=== PATIENT | female | born 1985 ===

== ENCOUNTER 2019-05-23 11:20 | Outpatient (CLI) | payer OTHER | END 2019-05-23 11:22 | disposition home or self-care (01) | LOC: SONOGRAMA 11:20 | DX: E04.8 Other specified nontoxic goiter (principal) ==

== ENCOUNTER 2019-11-12 11:30 | Inpatient (IN) | payer OTHER ==
[~2019-11-12] VITALS: Ht 160 cm; Wt 76.2 kg
[2019-12-03] MEDS ORDERED: PRENATAL TABLE1 EAC1 PO (09:08)
[2019-12-03] MEDS ORDERED: MAXFE CAPLET1 EACH PO (09:11)
[2019-12-03] MEDS ORDERED: SYMBICORT 16010.2 GM (15:58)
[2019-12-03] MEDS ORDERED: PANTOPRAZOLE SO40 MG PO (15:58)
== END 2019-12-05 12:24 | disposition home or self-care (01) | DRG 807 ==
LOC: LDR 12-03 06:55 → OB/GYN 12-03 12:50 → LDR 12-09 11:30
PROVIDERS: ADMIT Obstetrics & Gynecology Maternal & Fetal Medicine; ATTEND Obstetrics & Gynecology Maternal & Fetal Medicine
PROC: 10E0XZZ Delivery of Products of Conception, External Approach (ICD-10-PCS; principal; 2019-12-03)
PROC: 0KQM0ZZ Repair Perineum Muscle, Open Approach (ICD-10-PCS; 2019-12-03)
PROC: 4A1HXFZ Monitoring of Products of Conception, Cardiac Rhythm, External Approach (ICD-10-PCS; 2019-12-03)
PROC: 3E033VJ Introduction of Other Hormone into Peripheral Vein, Percutaneous Approach (ICD-10-PCS; 2019-12-03)
PROC: 0W8NXZZ Division of Female Perineum, External Approach (ICD-10-PCS; 2019-12-03)
DX: O70.1 Second degree perineal laceration during delivery (principal); Z37.0 Single live birth; Z3A.37 37 weeks gestation of pregnancy

== ENCOUNTER 2019-12-02 08:26 | Outpatient (CLI) | payer OTHER ==
[2019-12-03] MEDS ORDERED: PRENATAL TABLE1 EAC1 PO (09:08)
[2019-12-03] MEDS ORDERED: MAXFE CAPLET1 EACH PO (09:11)
[2019-12-03] MEDS ORDERED: SYMBICORT 16010.2 GM (15:58)
[2019-12-03] MEDS ORDERED: PANTOPRAZOLE SO40 MG PO (15:58)
== END 2019-12-02 09:20 | disposition home or self-care (01) ==
LOC: NST 08:26
PROVIDERS: ATTEND Obstetrics & Gynecology Maternal & Fetal Medicine
DX: Z34.83 Encounter for supervision of other normal pregnancy, third trimester (principal)